=== PATIENT | female | born 1965 | race Caucasian/White ===

== ENCOUNTER 2019-11-20 11:51 | Emergency (ER) | payer MEDICAID ==
[~2019-11-20] VITALS: Ht 165.1 cm; Wt 68.0 kg
[2019-11-20] MEDS ORDERED: LIDOCAINE 1% INJ 50 ML MDV IJ ONE (12:11)
--- NOTE | 2019-11-20 12:18 | NUR ---
BIBS. TO ER BED 13. AAOX4. NOT IN RESP DISTRESS. AMBULATORY. CAME IN FOR R HAND ABSCESS WHICH GIT WORST IN THE PAST 3 DAYS. PT REPORTS THAT SHE IT STARTED A CHRONIC CYST. NOTED R HAND SWELLING, REDNESS AND PAIN WHICH IS RATED "12/10" BY THE PATIENT. MD WAS AT THE BEDSIDE FOR EVAL. ORDERS RECEIVED, NOTED ANC CARRIED OUT. I&D SETUP AT BEDSIDE
[2019-11-20] MEDS: LIDOCAINE 1% INJ 50 ML MDV IJ ONE (12:28)
[2019-11-20] MEDS ORDERED: HYDROCODONE/APAP 5/325MG 1 EACH TABLET ONE (13:06)
--- NOTE | 2019-11-20 13:18 | NUR ---
Patient discharged to home in stable condition. Written and verbal after care instructions given. Patient verbalizes understanding of instruction. Pt ambulatory with a steady gait
[2019-11-20 13:19] VITALS: BP 104/70
[2019-11-20] MEDS ORDERED: HYDROCODONE/APAP 5/325MG 1 EACH TABLET PO ONE (13:30)
== END 2019-11-20 13:21 | disposition home or self-care (01) ==
LOC: ER 11:55
DX: L02.511 Cutaneous abscess of right hand (principal); L03.113 Cellulitis of right upper limb
CPT/HCPCS: 10060; 99283; A6407; J3490

== ENCOUNTER 2024-01-30 18:26 | Emergency (ER) | payer MEDICAID, OTHER ==
[~2024-01-30] VITALS: Ht 165.1 cm; Wt 72.1 kg
[2024-01-30] MEDS ORDERED: CEPH-570 PO (19:14)
[2024-01-30] MEDS ORDERED: DOXY-326 PO (19:14)
[2024-01-30 19:34] VITALS: BP 133/77; TEMP 98; O2SAT 97
== END 2024-01-31 02:40 | disposition home or self-care (01) ==
LOC: ER 18:45
DX: S60.222A Contusion of left hand, initial encounter (principal); L03.114 Cellulitis of left upper limb; F17.210 Nicotine dependence, cigarettes, uncomplicated; F12.10 Cannabis abuse, uncomplicated; X58.XXXA Exposure to other specified factors, initial encounter; Y93.89 Activity, other specified; Y92.89 Other specified places as the place of occurrence of the external cause; Y99.8 Other external cause status

== ENCOUNTER 2024-06-15 10:54 | Emergency (ER) | payer OTHER ==
[~2024-06-15] VITALS: Ht 165.1 cm; Wt 68.9 kg
[~2024-06-15 10:54] MED LIST: CEPH-570 PO; DOXY-326 PO
[2024-06-15 12:00] LABS: BASOPHILS % (AUTO) 0.3 % (0.0-2.0); EOSINOPHILS % (AUTO) 0.2 % (0.0-6.0); HEMATOCRIT 46 % (33-45); HEMOGLOBIN 15.6 g/dL (11.5-14.8); LYMPHOCYTES # (AUTO) 2.1 K/uL (0.8-4.8); LYMPHOCYTES % (AUTO) 20.6 % (20.0-44.0); MEAN CORPUSCULAR HEMOGLOBIN 31 PG (26.0-33.0); MEAN CORPUSCULAR HGB CONC 34 g/dl (31.0-36.0); MEAN CORPUSCULAR VOLUME 93 fL (82-100); MONOCYTES # (AUTO) 0.9 K/uL (0.1-1.30); MONOCYTES % (AUTO) 9.4 % (2.0-12.0); NEUTROPHILS % (AUTO) 69.5 % (43.0-81.0); PLATELET COUNT (AUTO) 358 K/uL (150-450); RED BLOOD CELL COUNT(AUTO) 4.99 MIL/uL (4.0-5.2); RED CELL DISTRIBUTION WIDTH 12.9 % (11.5-15.0); WHITE BLOOD COUNT (AUTO) 10.1 K/uL (4.3-11.0)
[2024-06-15 12:01] LABS: APPEARANCE,URINE CLEAR (CLEAR); BILIRUBIN,URINE NEGATIVE (NEGATIVE); BLOOD, URINE TRACE-INTA Ery/uL (NEGATIVE); COLOR,URINE YELLOW (YELLOW); KETONES,URINE TRACE mg/dL (NEGATIVE); LEUKOCYTE ESTERASE ,URINE NEGATIVE (NEGATIVE); NITRITE, URINE NEGATIVE (NEGATIVE); PH,URINE 6.5 (5.0-8.0); PROTEIN,URINE TRACE mg/dl (NEGATIVE); UGLUCOSE NEGATIVE (NEGATIVE); UROBILINOGEN,URINE 0.2 EU/dL (0.2)
[2024-06-15 12:05] LABS: CALCIUM, SERUM 9.3 mg/dL (8.5-10.1); CREATININE 0.8 mg/dL (0.6-1.3); POTASSIUM 3.7 mmol/L (3.5-5.1)
[2024-06-15 12:10] LABS: ALBUMIN 4.3 g/dL (3.4-5.0); BILIRUBIN,DIRECT 0.1 mg/dL (0.0-0.2); BILIRUBIN,TOTAL 0.6 mg/dL (0.2-1.0); TOTAL PROTEIN, SERUM 7.5 g/dL (6.4-8.2)
[2024-06-15 12:15] LABS: ADD URINE CULTURE NO; BACTERIA,URINE 1+ /HPF (None Seen); RBC,URINE 0-2 /HPF (0-2); WBC,URINE 0-2 /HPF (0-3)
[2024-06-15] MEDS ORDERED: METOCLOPRAMIDE HCL 10 MG/2 ML VIAL ONE (13:02)
[2024-06-15] MEDS ORDERED: diphenhydrAMINE HCL 50 MG/ML VIAL ONE (13:02)
[2024-06-15] MEDS ORDERED: SUMATRIPTAN SUCCINATE 6 MG/0.5 ML VIAL SQ ONE (13:02)
[2024-06-15] MEDS: IV NS 0.9% 1,000 ML BAG IV ONE (13:21)
[2024-06-15] MEDS: diphenhydrAMINE HCL 50 MG/ML VIAL IV ONE (13:21)
[2024-06-15] MEDS: SUMATRIPTAN SUCCINATE 6 MG/0.5 ML VIAL SQ ONE (13:23)
[2024-06-15] MEDS: METOCLOPRAMIDE HCL 10 MG/2 ML VIAL IV ONE (13:23)
[2024-06-15] MEDS ORDERED: ONDA4TAB11 PO (14:00)
[2024-06-15] MEDS ORDERED: PANT20TA2 PO (14:00)
[2024-06-15] MEDS ORDERED: SUMA100T PO (14:00)
[2024-06-15] MEDS ORDERED: KETO10TA2 PO (14:00)
[2024-06-15 15:11] VITALS: BP 131/100; TEMP 97.8; O2SAT 97
== END 2024-06-15 15:30 | disposition home or self-care (01) ==
LOC: ER 11:12
DX: R51.9 Headache, unspecified (principal); R11.2 Nausea with vomiting, unspecified; R10.13 Epigastric pain; R42 Dizziness and giddiness; F17.210 Nicotine dependence, cigarettes, uncomplicated; Z87.11 Personal history of peptic ulcer disease; Z90.710 Acquired absence of both cervix and uterus
CPT/HCPCS: 99285; 96374; 70450; 96361; 96375; 85025; 80048; 83690; 80076; 81001; 36415; 96372; J1200; J3030; J2765; J7030